=== PATIENT | female | born 1995 | race Caucasian/White ===

== ENCOUNTER 2025-06-26 13:15 | Emergency (ER) | payer MEDICAID ==
[~2025-06-26] VITALS: Ht 160 cm; Wt 97.7 kg
[2025-06-26 13:20] VITALS: TEMP 98.4
[2025-06-26] MEDS ORDERED: FLUO-418 PO (13:26)
[2025-06-26 14:30] VITALS: BP 124/69; PULSE 65; RESP 18; O2SAT 100
[2025-06-26] MEDS ORDERED: IBUP-1492 PO (14:41)
[2025-06-26] MEDS ORDERED: SULF-261 PO (14:41)
[2025-06-26] MEDS ORDERED: CEPH-558 PO (14:41)
== END 2025-06-26 15:04 | disposition home or self-care (01) ==
LOC: EMS 13:26
DX: N61.1 Abscess of the breast and nipple (principal); Z79.899 Other long term (current) drug therapy; Z88.5 Allergy status to narcotic agent
CPT/HCPCS: 99283; 99284